=== PATIENT | male | born 1980 | race Caucasian/White ===

== ENCOUNTER 2016-10-25 05:44 | Emergency (ER) | payer OTHER, MEDICAID ==
--- NOTE | 2016-10-25 06:09 | EDPHY ---
H & P Stated Complaint: LEFT LEG PAIN X1 WK, FORGOT COUMADIN x`1 WEEK, FACTOR 5 DISORDER Source: Patient - Personal History Current Tetanus/Diphtheria Vaccine: Yes Tetanus Vaccine Date: < 10 YEARS - Medical/Surgical History Hx Asthma: Yes Hx Chronic Respiratory Disease: No Hx Diabetes: Yes Hx Cardiac Disease: No Hx Renal Disease: No Hx Cirrhosis: No Hx Alcoholism: No Hx HIV/AIDS: No Hx Splenectomy or Spleen Trauma: No Other PMH: choly/pancrectomy/ partial right lung lobectomy. dvt/asthma/ diabetes. FACTOR 5 LEIDEN, COLECTOMY, PERIPHERAL NEUROPATHY, HTN, chron backpain, s/p coma a few years ago, chronic pain - Social History Smoking Status: Never smoked HPI/ROS: HPI CHIEF COMPLAINT: left Leg pain, off Coumadin, factor 5 leiden HISTORY OF PRESENT ILLNESS: This patient is a 36-year-old male significant past medical history for multiple chronic medical problems including factor 5 Leiden deficiency history of DVTs and hypertension, he presents emergency room after he states that he went to a wedding in [place]. He got to bring his Coumadin. He thinks he missed 7-9 days of his Coumadin. He noticed on Saturday or approximately 6 days ago that his left leg was starting to hurt him. He decided to go back on his Coumadin. He thinks he has taken 2 doses. He is concerned he may have a DVT. He has had DVTs in the past. He presents emergency room at 6 o'clock in the morning with left leg pain and swelling. He states the discoloration of his leg is normal for him he has neuropathy any foot drop in his left leg and has venous stasis. However he states the pain and swelling is worse than normal. Patient tells me that he has tenderness in the back of his left calf. Additionally Pain goes up to his thigh. Past Medical History: Acute renal failure, brittle diabetes, chronic pain, factor 5 Leiden deficiency on Coumadin, obesity, chronic respiratory failure, DVT hypertension Past Surgical History: Multiple abdominal surgeries including pancreas surgery for a large cyst, IVC filter Social History: Denies daily use of drugs alcohol tobacco products is on methadone daily. Family History: Non-Contributory ROS REVIEW OF SYSTEMS: A comprehensive 10 point review of systems is otherwise negative aside from elements mentioned in the history of present illness. Exam Constitutional triage nursing summary reviewed, vital signs reviewed, awake/ alert. Eyes normal conjunctivae and sclera, EOMI, PERRLA. HENT normal inspection, atraumatic, moist mucus membranes, no epistaxis, neck supple/ no meningismus, no raccoon eyes. Respiratory clear to auscultation bilaterally, normal breath sounds, no respiratory distress, no wheezing. Cardiovascular rate normal, regular rhythm, no murmur, no edema, distal pulses normal. Gastrointestinal soft, non-tender, no rebound, no guarding, normal bowel sounds, no distension, no pulsatile mass. Genitourinary no CVA tenderness. Musculoskeletal left leg: Chronic venous stasis changes, warm extremity good cap refill, tenderness to palpation posterior calf and in her left thigh. Feels full. No warmth. No redness. tenderness in the no midline vertebral tenderness, full range of motion, no calf swelling, no tenderness of extremities , no meningismus, good pulses, neurovascularly intact. Skin pink, warm, & dry, no rash, skin atraumatic. Neurologic awake, alert and oriented x 3, AAOx3, moves all 4 extremities equally, motor intact, sensory intact, CN II-XII intact, normal cerebellar, normal vision, normal speech. Psychiatric normal mood/affect. Heme/Lymph/Immune no lymphadenopathy. Differential Diagnosis: Includes but is not limited to in a particular order a DVT, neuropathy, peripheral edema, renal failure Medical Decision Making: Plan for this patient establishment with blood draw including coags, ultrasound left lower extremity rule out DVT. Re-evaluation: (Tan Hicks) Constitutional: Initial Vital Signs Temperature (C) 36.6 C 10/25/16 05:50 Heart Rate 98 10/25/16 05:50 Respiratory Rate 18 10/25/16 05:50 Blood Pressure 138/100 H 10/25/16 05:50 O2 Sat (%) 97 10/25/16 05:50 O2 Delivery Mode Room Air Allergies/Adverse Reactions: No Known Allergies Allergy (Unverified 10/25/16 05:48) Home Medications: Medication Instructions Recorded Amphet Asp and D/Amphet [Adderall 25 mg PO DAILY 01/12/16 20 mg (*)] Insulin Aspart [Novolog Flexpen] 12 unit SQ AC 01/12/16 Insulin Glargine [Lantus 100 15 units SC BID 01/12/16 UNITS/ML (*)] Methadone HCl [Methadone HCl 10 mg 170 mg PO DAILY 01/12/16 (*)] Warfarin Sodium [Coumadin 5MG (*)] 15 mg PO DAILY 01/12/16 clonazePAM [klonoPIN (*)] 1 mg PO DAILY 01/12/16 Enoxaparin [Lovenox 100 MG (*)] 110 mg SQ 1000,2200 #10 syr 10/25/16 Medical Decision Making ED Course/Re-evaluation: 715 care assumed by me and Dr. Hicks pending ultrasound results. 0740 duplex ultrasound shows new clot in his left popliteal vein. There is none proximal to the knee. This is on top of evidence of old clot. 0745 patient given Lovenox here. I have discussed with him the results of his ultrasound. He will need to be on Lovenox until his INR is therapeutic. There is no proximal clot. There is no ischemic changes on examination. There is no evidence of cerulea dolens at this time. Patient will continue his Coumadin. Will continue Lovenox. INR check in 2 days. Return for worsening. Follow-up with primary care physician. The patient does have an IVC filter in place. ( Yang Hannah) - Data Points Laboratory Results: Laboratory Results 10/25/16 06:40 10/25/16 06:40 10/25/16 10/25/16 10/25/16 06:40 06:40 06:40 WBC 7.44 10^3/uL 10^3/uL (3.80-9.50) RBC 5.57 10^6/uL 10^6/uL (4.40-6.38) Hgb 16.3 g/dL g/dL (13.7-17.5) Hct 48.8 % % (40.0-51.0) MCV 87.6 fL fL (81.5-99.8) MCH 29.3 pg pg (27.9-34.1) MCHC 33.4 g/dL g/dL (32.4-36.7) RDW 13.3 % % (11.5-15.2) Plt Count 140 10^3/uL L 10^3/uL (150-400) MPV 10.7 fL fL (8.7-11.7) Neut % (Auto) 64.5 % % (39.3-74.2) Lymph % (Auto) 23.3 % % (15.0-45.0) [place] % (Auto) 7.4 % % (4.5-13.0) Eos % (Auto) 3.9 % % (0.6-7.6) Baso % (Auto) 0.5 % % (0.3-1.7) Nucleat RBC Rel Count 0.0 % % (0.0-0.2) Absolute Neuts (auto) 4.80 10^3/uL 10^3/uL (1.70-6.50) Absolute Lymphs (auto) 1.73 10^3/uL 10^3/uL (1.00-3.00) Absolute Monos (auto) 0.55 10^3/uL 10^3/uL (0.30-0.80) Absolute Eos (auto) 0.29 10^3/uL 10^3/uL (0.03-0.40) Absolute Basos (auto) 0.04 10^3/uL 10^3/uL (0.02-0.10) Absolute Nucleated RBC 0.00 10^3/uL 10^3/uL (0-0.01) Immature Gran % 0.4 % % (0.0-1.1) Immature Gran # 0.03 10^3/uL 10^3/uL (0.00-0.10) PT 14.2 SEC SEC (12.0-15.0) INR 1.11 (0.83-1.16) APTT 25.0 SEC SEC (23.0-38.0) Sodium 142 mEq/L mEq/L (134-144) Potassium 4.1 mEq/L mEq/L (3.5-5.2) Chloride 104 mEq/L mEq/L (97-110) Carbon Dioxide 24 mEq/l mEq/l (22-31) Anion Gap 14 mEq/L mEq/L (8-16) BUN 20 mg/dL mg/dL (7-23) Creatinine 1.2 mg/dL mg/dL (0.7-1.3) Estimated GFR > 60 Glucose 198 mg/dL H mg/dL (70-100) Calcium 9.5 mg/dL mg/dL (8.5-10.4) Medications Given: Discontinued Medications Enoxaparin Sodium (Lovenox) 100 mg SC EDNOW ONE Stop: 10/25/16 07:44 Last Admin: 10/25/16 08:21 Dose: 100 mg Sodium Chloride (Ns) 1,000 mls @ 0 mls/hr IV ONCE ONE PRN Reason: Wide Open Stop: 10/25/16 06:22 Last Admin: 10/25/16 06:46 Dose: 1,000 mls Morphine Sulfate (Morphine) 4 mg IVP EDNOW ONE Stop: 10/25/16 06:22 Last Admin: 10/25/16 06:46 Dose: 4 mg Departure - Departure Disposition: Home, Routine, Self-Care Clinical Impression: DVT (deep venous thrombosis) Instructions: Enoxaparin (By injection), Deep Venous Thrombosis (ED) Additional Instructions: Continue taking Lovenox until your therapeutic on her Coumadin. Have INR checked in 2 days. Continue taking her Coumadin as prescribed. Follow up with primary care physician in 1-2 days for re-evaluation. Line return to the emergency depart for increasing leg pain, discoloration, chest pain, shortness of breath, or any other concerns. Referrals: Miracle Polanco MD [Medical Doctor] - As per Instructions Prescriptions: Enoxaparin [Lovenox 100 MG (*)] 110 mg SQ 1000,2200 #10 syr
[2016-10-25] MEDS ORDERED: NS 1,000 ML IV ONE (06:21)
[2016-10-25 06:51] LABS: % IMMATURE GRANULYOCYTES 0.4 % (0.0-1.1); ABSOLUTE IMMATURE GRANULOCYTES 0.03 10^3/uL (0.00-0.10); ADD DIFF? NO; ADD MORPH? NO; ADD SCAN? NO; ATYPICAL LYMPHOCYTE FLAG 0 (0-99); FRAGMENT RBC FLAG 0 (0-99); HEMATOCRIT 48.8 % (40.0-51.0); HEMOGLOBIN 16.3 g/dL (13.7-17.5); LEFT SHIFT FLG 0 (0-99); LIPEMIA HEMOLYSIS FLAG 80 (0-99); MEAN CELL HEMOGLOBIN 29.3 pg (27.9-34.1); MEAN CELL HEMOGLOBIN CONCENTR. 33.4 g/dL (32.4-36.7); MEAN CELL VOLUME 87.6 fL (81.5-99.8); MEAN PLATELET VOLUME 10.7 fL (8.7-11.7); PLATELET CLUMPS FLAG 0 (0-99); PLATELET COUNT 140 10^3/uL (150-400); RED BLOOD CELL COUNT 5.57 10^6/uL (4.40-6.38); RED CELL DISTRIBUTION WIDTH 13.3 % (11.5-15.2)
[2016-10-25 07:00] LABS: INR 1.11 (0.83-1.16); PROTIME(PATIENT) 14.2 SEC (12.0-15.0)
[2016-10-25 07:05] LABS: ANION GAP 14 mEq/L (8-16); CALCIUM 9.5 mg/dL (8.5-10.4); CARBON DIOXIDE 24 mEq/l (22-31); CHLORIDE 104 mEq/L (97-110); CREATININE 1.2 mg/dL (0.7-1.3); GLOMERULAR FILTRATION RATE > 60; GLUCOSE 198 mg/dL (70-100); POTASSIUM 4.1 mEq/L (3.5-5.2); SODIUM 142 mEq/L (134-144)
[2016-10-25] MEDS ORDERED: ENOXAPARIN 100 MG/ML SYR SC ONE (07:43)
[2016-10-25 08:41] VITALS: BP 136/89; PULSE 81; RESP 20; TEMP 98.4; O2SAT 95
== END 2016-10-25 08:54 | disposition home or self-care (01) ==
DX: I82.402 Acute embolism and thrombosis of unspecified deep veins of left lower extremity (principal); I10 Essential (primary) hypertension; J45.909 Unspecified asthma, uncomplicated; E11.9 Type 2 diabetes mellitus without complications; Z79.01 Long term (current) use of anticoagulants; Z79.4 Long term (current) use of insulin
CPT/HCPCS: 93971; 96361; 96372; 96374; 99285; J1650